=== PATIENT | female | born 1940 | race Caucasian/White ===

== ENCOUNTER 2021-12-21 14:06 | Emergency (ER) | payer OTHER ==
[~2021-12-21] VITALS: Ht 147.3 cm; Wt 61.8 kg
[2021-12-21 14:20] VITALS: BP 128/73
--- NOTE | 2021-12-21 14:58 | NUR ---
PT AMB WITH STEADY GAIT TO BED 01
[2021-12-21] MEDS ORDERED: NACL 0.9% 500 ML IV ONE (15:20)
[2021-12-21] MEDS ORDERED: ONDANSETRON 4 MG/2 ML VIAL IVP ONE (15:20)
[2021-12-21 15:42] LABS: BASOPHILS % (AUTO) 0.6 % (0.0-2.0); EOSINOPHILS % (AUTO) 0.1 % (0.0-4.0); HEMATOCRIT 44.4 % (36-48); HEMOGLOBIN 14.5 g/dL (12.0-16.0); LYMPHOCYTES # (AUTO) 1.1 K/uL (2.5-16.5); LYMPHOCYTES % (AUTO) 27.7 % (20.5-51.1); MEAN CORPUSCULAR HEMOGLOBIN 30 pg (27-31); MEAN CORPUSCULAR HGB CONC 33 g/dL (33-37); MEAN CORPUSCULAR VOLUME 92.1 fL (80-94); MONOCYTES # (AUTO) 0.5 K/uL (0.8-1.0); MONOCYTES % (AUTO) 12.7 % (1.7-9.3); NEUTROPHILS # (AUTO) 2.3 K/uL (1.8-7.7); NEUTROPHILS % (AUTO) 58.9 % (42.2-75.2); PLATELET COUNT (AUTO) 132 K/uL (140-450); RED BLOOD CELL COUNT(AUTO) 4.83 MIL/uL (4.20-5.40); RED CELL DISTRIBUTION WIDTH 14.4 % (11.6-13.7); WHITE BLOOD COUNT (AUTO) 3.9 K/uL (4.8-10.8)
--- NOTE | 2021-12-21 15:45 | NUR ---
81 y/o female bib daughter in law from home, c/o cough, chills, oshea, body aches, general weakness, abd pain, with n&v for 3 days. pt states she was exposed to multiple people in her household who were covid + 5 days ago. skin is pink/warm/dry. a&o x4, korean speaking with even and steady gait. abd round/soft/nontender. pt states pain is 8/10 at this time. patient positioned for comfort. hob elevated. bed down. ermd made aware of pt. pmh: depression, htn nka
[2021-12-21 16:04] LABS: ALBUMIN 3.3 g/dL (3.4-5.0); ANION GAP 12.2 (8-16); ASPARTATE AMINOTRANSFERASE 26 U/L (15-37); CARBON DIOXIDE 24.6 mmol/L (21-32); CHLORIDE 107 mmol/L (98-107); CREATININE 0.8 mg/dL (0.6-1.3); GLUCOSE 99 mg/dL (74-106); POTASSIUM 3.8 mmol/L (3.5-5.1); SODIUM SERUM 140 mmol/L (136-145); TOTAL BILIRUBIN 0.4 mg/dL (0.0-1.0); UREA NITROGEN, BLOOD 14 mg/dL (7-18)
[2021-12-21] MEDS ORDERED: ACETAMINOPHEN 325 MG TAB ONE (16:46)
--- NOTE | 2021-12-21 16:48 | NUR ---
pt given apple juice for po challenge
[2021-12-21] MEDS ORDERED: ACETAMINOPHEN 325 MG TAB PO ONE (16:50)
--- NOTE | 2021-12-21 17:02 | NUR ---
spoke with mario (daughter), pt and daughter do not recall pt taking any medication at home at this time for her depression or htn. both do not recall name of previous medicatoin. per daughter, pt has appointment with pcp in [facility]. pt currently not taking any medicatoin at home. beverly webster notified at this time
--- NOTE | 2021-12-21 17:17 | NUR ---
Patient appears to be resting comfortably in bed. Vital Signs within normal limits. Respirations even and unlabored.
--- NOTE | 2021-12-21 17:17 | NUR ---
pt tolerated po apple juice.
[2021-12-21] MEDS ORDERED: PROM118S5 PO (17:37)
[2021-12-21] MEDS ORDERED: ONDA-188 PO (17:37)
[2021-12-21] MEDS ORDERED: NIRM1TAB PO (17:37)
[2021-12-21] MEDS ORDERED: ACET-1194 PO (17:37)
[2021-12-21 18:05] VITALS: BP 154/86
--- NOTE | 2021-12-21 18:06 | NUR ---
Patient discharged with v/s stable. Written and verbal after care instructions given and explained. Patient alert, oriented and verbalized understanding of instructions. Wheel Chair Assisted with son to car. All questions addressed prior to discharge. ID band removed. Patient advised to follow up with PMD. Rx of tylenol, paxlovid, zofran, promethazine (sent) given. Patient educated on indication of medication including possible reaction and side effects. Opportunity to ask questions provided and answered.
== END 2021-12-21 18:06 | disposition home or self-care (01) ==
LOC: MED 14:06
DX: U07.1 COVID-19 (principal); I10 Essential (primary) hypertension
CPT/HCPCS: 36415; 71045; 80053; 81002; 85025; 87426; 96361; 96374; 99284; J2405; Q0092; J7030